=== PATIENT | male | born 1970 | race Caucasian/White ===

== ENCOUNTER 2024-04-23 09:14 | Emergency (ER) | payer OTHER ==
[~2024-04-23] VITALS: Ht 188 cm; Wt 100.0 kg
[2024-04-23 09:20] VITALS: BP 133/82; PULSE 83; RESP 18; O2SAT 96
[2024-04-23] MEDS ORDERED: GUAI120015 PO (10:12)
[2024-04-23] MEDS ORDERED: NAPR-56 PO (10:12)
[2024-04-23] MEDS ORDERED: HYDR-3964 PO (10:12)
[2024-04-23 10:24] VITALS: TEMP 97.4
== END 2024-04-23 10:25 | disposition home or self-care (01) ==
LOC: ER 09:15
DX: S22.32XA Fracture of one rib, left side, initial encounter for closed fracture (principal); W01.0XXA Fall on same level from slipping, tripping and stumbling without subsequent striking against object, initial encounter; Y93.89 Activity, other specified; Y92.89 Other specified places as the place of occurrence of the external cause; Y99.8 Other external cause status
CPT/HCPCS: 71101; 99283